=== PATIENT | female | born 1925 | race Caucasian/White ===

== ENCOUNTER → 2016-07-15 | Outpatient (CLI) | payer MEDICARE, OTHER ==
[~2016-07-15] MED LIST: 'CYTOTEC200 MCG PO; COZAAR100 MG PO; TIKOSYN0.25 MG PO; TOPROL XL25 MG PO; VITAMIN D5000 UNIT PO; XARE20MG PO; ZOCOR40 MG PO
== END | disposition home or self-care (01) ==
LOC: RAD 11:45
DX: M19.041 Primary osteoarthritis, right hand (principal); I48.91 Unspecified atrial fibrillation

== ENCOUNTER 2016-09-03 05:39 | Emergency (ER) | payer MEDICARE, OTHER ==
[~2016-09-03] VITALS: Ht 162.5 cm; Wt 62.6 kg
[2016-09-03 06:00] LABS: BASO # 0.1 10*3/uL (0.0-0.1); BASO % 0.6 % (0.0-1.0); EOS # 0.1 10*3/uL (0.0-0.4); EOS % 1.8 % (1.0-4.0); HEMATOCRIT 46.6 % (37.0-47.0); HEMOGLOBIN 15.6 g/dl (12.0-16.0); LYMPH # 1.4 10*3/uL (1.3-4.4); LYMPH % 18.4 % (27.0-41.0); MEAN CORPUSCULAR HGB 31.5 pg (27.0-31.0); MEAN CORPUSCULAR HGB CONC 33.5 g/dl (33.0-37.0); MEAN PLATELET VOLUME 10.4 fl (9.6-12.3); MONO # 0.5 10*3/uL (0.1-1.0); MONO % 6.5 % (3.0-9.0); NEUT # 5.7 10*3/uL (2.3-7.9); NEUT % 72.2 % (47.0-73.0); PLATELET COUNT AUTOMATED 139 10*3/uL (130-400); RED BLOOD COUNT 4.96 10*6/uL (4.10-5.10); RED CELL DISTRI WIDTH 13.6 % (0-14.5); WHITE BLOOD COUNT 7.8 10*3/uL (4.8-10.8)
[2016-09-03] MEDS ORDERED: ASPIRIN ADULT L81 M1 PO (06:11)
[2016-09-03] MEDS ORDERED: PRESERVISION A1 EACH PO (06:13)
[2016-09-03 06:16] LABS: ALBUMIN 3.6 gm/dl (3.1-4.5); ALKALINE PHOSPHATASE 68 U/L (45-117); BILIRUBIN, TOTAL 0.7 mg/dl (0.2-1.0); BUN 15 mg/dl (7-24); CARBON DIOXIDE 28 mmol/L (21-32); CHLORIDE 105 mmol/L (98-107); EST GLOM FILT AFRICAN AMERICAN > 60 ml/min; GLUCOSE 93 mg/dL (65-99); MAGNESIUM 1.8 mg/dL (1.5-2.1); POTASSIUM 4.2 mmol/L (3.5-5.1); SGOT/AST 27 IU/L (3-35); SGPT/ALT 22 U/L (12-78); SODIUM 142 mmol/L (136-145); TOTAL PROTEIN 7.2 gm/dL (6.4-8.2)
[2016-09-03 06:17] LABS: TROPONIN I < 0.015 ng/ml (<0.045)
[2016-09-03 06:21] LABS: INTERNATIONAL NORM RATIO 1.1 (2.0-3.5); PROTHROMBIN TIME 11.7 SECONDS (9.0-12.4)
[2016-09-03] MEDS ORDERED: ZITHROMAX250 MG PO (07:17)
== END 2016-09-03 07:29 | disposition home or self-care (01) ==
LOC: ED 05:39
PROVIDERS: Emergency Medicine Emergency Medical Services
DX: J18.1 Lobar pneumonia, unspecified organism (principal); R07.9 Chest pain, unspecified; I48.91 Unspecified atrial fibrillation; Z79.82 Long term (current) use of aspirin; Z79.899 Other long term (current) drug therapy

== ENCOUNTER → 2016-09-23 | Outpatient (CLI) | payer MEDICARE, OTHER ==
[~2016-09-23] MED LIST changes: +ASPIRIN ADULT L81 M1 PO; +PRESERVISION A1 EACH PO; +ZITHROMAX250 MG PO
== END | disposition home or self-care (01) ==
LOC: RAD 09:16
DX: J44.9 Chronic obstructive pulmonary disease, unspecified (principal); J18.1 Lobar pneumonia, unspecified organism; I70.0 Atherosclerosis of aorta

== ENCOUNTER → 2017-02-01 | Outpatient (CLI) | payer MEDICARE, OTHER ==
[2017-02-01 10:46] LABS: ALBUMIN 3.4 gm/dl (3.1-4.5); ALKALINE PHOSPHATASE 71 U/L (45-117); BUN 18 mg/dl (7-24); CHLORIDE 106 mmol/L (98-107); CREATININE 0.89 mg/dL (0.55-1.02); POTASSIUM 4.6 mmol/L (3.5-5.1); SGOT/AST 23 IU/L (3-35); SGPT/ALT 20 U/L (12-78); SODIUM 142 mmol/L (136-145); TOTAL PROTEIN 6.9 gm/dL (6.4-8.2)
[2017-02-01 10:48] LABS: BASO % 0.5 % (0.0-1.0); EOS # 0.1 10*3/uL (0.0-0.4); EOS % 1.2 % (1.0-4.0); HEMATOCRIT 43.9 % (37.0-47.0); HEMOGLOBIN 14.2 g/dl (12.0-16.0); LYMPH # 1.3 10*3/uL (1.3-4.4); LYMPH % 15.4 % (27.0-41.0); MEAN CELL VOLUME 96.5 fl (81.0-99.0); MEAN CORPUSCULAR HGB 31.2 pg (27.0-31.0); MEAN CORPUSCULAR HGB CONC 32.3 g/dl (33.0-37.0); MEAN PLATELET VOLUME 10.9 fl (9.6-12.3); MONO # 0.6 10*3/uL (0.1-1.0); MONO % 7.2 % (3.0-9.0); NEUT # 6.5 10*3/uL (2.3-7.9); NEUT % 75.4 % (47.0-73.0); PLATELET COUNT AUTOMATED 163 10*3/uL (130-400); RED BLOOD COUNT 4.55 10*6/uL (4.10-5.10); RED CELL DISTRI WIDTH 13.8 % (0-14.5); WHITE BLOOD COUNT 8.6 10*3/uL (4.8-10.8)
== END | disposition home or self-care (01) ==
LOC: LAB 08:51 → CT 09:00
PROVIDERS: Family Medicine
DX: K57.30 Diverticulosis of large intestine without perforation or abscess without bleeding (principal); I70.0 Atherosclerosis of aorta; E55.9 Vitamin D deficiency, unspecified; Z90.49 Acquired absence of other specified parts of digestive tract; Z90.710 Acquired absence of both cervix and uterus

== ENCOUNTER → 2017-03-26 | Outpatient (CLI) | payer MEDICARE, OTHER ==
[~2017-03-26] MED LIST changes: +LASIX20 MG PO; +METOPROLOL SUCC25 M2 PO; +PANTOPRAZOLE SO40 MG PO; +VITAMIN D-32000 UNIT PO
== END | disposition home or self-care (01) ==
LOC: RAD 10:31
DX: N93.9 Abnormal uterine and vaginal bleeding, unspecified (principal); R10.9 Unspecified abdominal pain; R31.0 Gross hematuria

== ENCOUNTER 2017-04-06 11:14 | Inpatient (IN) | payer MEDICARE, OTHER ==
[~2017-04-06] VITALS: Ht 162.5 cm; Wt 63.6 kg
--- NOTE | ~2017-04-06 | CON ---
[place], [place] REPORT OF CONSULTATION NAME: LULY CA [facility] #: [id number] UNIT #: [id number] ROOM: 408 DOCTOR: TONE KEVIN MD BIRTHDATE: [birth year] DOS: 04/07/2017 The patient was seen at her bedside today, 04/07/2017, for Cardiology consultation. CHIEF COMPLAINT: Dyspnea and cough. HISTORY OF PRESENT ILLNESS: The patient is an 89-year-old woman who states that she has had atrial fibrillation for about 10 years. She states that her first episode occurred while she was working in a [employer]. She had a syncopal episode and was brought to the hospital where she was found to have atrial fibrillation with rapid ventricular response. She was treated with rate slowing medications and anticoagulation. She states that she has never had a heart attack, although she was told that during her syncopal episode,, she had a mini stroke. She has recovered from this. The patient notes that recently she has had episodic hematuria. She was diagnosed as having recurrent urinary tract infections. She has had hospitalizations for rapid heartbeat, but never at [facility] before. Typically, she is followed by Dr. Kayode Barrett in [place]. On this occasion, she states that she has become more short of breath and has had a cough. In the Emergency Room, she was found to have atrial fibrillation with a rapid ventricular response. Her chest x-ray showed a small left pleural effusion and cardiomegaly with fibrosis. A CT of the chest showed small right and moderate left pleural effusions with bilateral lower lobe atelectasis and emphysema as well as pulmonary fibrosis. We were asked to see the patient for her rapid response to atrial fibrillation. Upon questioning and review of the records, I note that her only medication for rate control is metoprolol 25 mg daily. The patient believes that that medication has actually been stopped. Family members including 3 sons and a [id number] believe that the medicine was stopped earlier this year, but do not have her current medical list with them. PAST MEDICAL HISTORY: Includes: 1. Atrial fibrillation with rapid ventricular response, first documented about 2006. 2. History of transient ischemic attack. 3. Hyperlipidemia. 4. Recurrent hematuria and urinary tract infections. PAST SURGICAL HISTORY: Status post appendectomy, cholecystectomy, D and C, cataract resection and right total knee replacement. MEDICATIONS PRIOR TO ADMISSION: Aspirin 81 mg per day, rivaroxaban 15 mg per day, simvastatin 40 mg at bedtime, PreserVision daily and it is not clear whether or not the patient is taking metoprolol succinate 25 mg daily. ALLERGIES: She has no known drug allergies. [place], [place] REPORT OF CONSULTATION NAME: LULY CA UNIT #: [id number] ROOM: 408 DOCTOR: TONE KEVIN MD BIRTHDATE: [birth year] FAMILY HISTORY: The patient's father at age 83 of natural causes. Her mother of CHF at age 78. REVIEW OF SYSTEMS: The patient denies diplopia or loss of vision. She is generally weak and breathless, but denies focal weakness. She denies lightheadedness or syncope. She denies orthopnea or PND. She denies fevers, chills, sweats or recent weight change. She denies hemoptysis or hematemesis. She denies blood in her urine or stools. She has had some peripheral edema. She denies any skin rashes. The remainder of the review of systems is negative except as noted above. SOCIAL HISTORY: The patient does not smoke or consume alcohol. PHYSICAL EXAMINATION: GENERAL: The patient is a slender, elderly white female who is awake, alert and oriented. VITAL SIGNS: Pulse is 100 and irregularly irregular, blood pressure is 120/82. She is afebrile. HEENT: Normocephalic and atraumatic. Extraocular muscles are intact. Sclerae are clear. Pupils are equal, round and react to light. The oral mucosa is moist. Tongue is midline. NECK: Supple. She has mild jugular distention with hepatojugular reflux. Carotids are full. I heard no bruits. She had no neck or supraclavicular masses and no thyromegaly. LUNGS: Respirations are unlabored. Her chest has decreased breath sounds at the bases with crackles and dullness at the bases. She has no presacral edema or chest wall tenderness. CARDIOVASCULAR: Her heart has an irregularly irregular rhythm without murmurs or gallops. The PMI is not displaced. There is no precordial heave, lift or thrill. ABDOMEN: Soft and normally active without masses, organomegaly or bruits. EXTREMITIES: Showed 1+ edema bilaterally. Peripheral pulses are palpable in the feet. LABORATORY DATA: Review of her electrocardiogram shows atrial fibrillation with a rapid ventricular response. There are no acute changes. IMPRESSION: 1. Atrial fibrillation with rapid ventricular response. 2. Acute on chronic diastolic congestive heart failure, likely due to atrial fibrillation with rapid ventricular response. 3. History of transient ischemic attack. 4. CHADS-VASc score equals 6, consistent with a high risk for future cardioembolic phenomena if the patient is not anticoagulated. PLAN: It is not clear at this point whether or not the patient was on a beta rojelio prior to admission. If she was, the dose was small and if she was not, she was not on any rate lowering medications. I think that she certainly should be on something to control her rate response to atrial fibrillation. At this [place], [place] REPORT OF CONSULTATION NAME: LULY CA UNIT #: [id number] ROOM: 408 DOCTOR: TONE KEVIN MD BIRTHDATE: [birth year] point, I would like to try her on metoprolol 25 mg b.i.d. 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 She did have an echocardiogram earlier today, but the images are not yet available for review. I will make further recommendations once I have seen them. She certainly should remain on long-term anticoagulation since her risk of stroke is quite high without it. I would not, however, keep her on aspirin and a direct oral anticoagulant since the combination may increase the potential for bleeding unnecessarily. I thank the hospitalist physicians for asking our advice regarding her care. TONE KEVIN MD CM:CONSTR:REPORT OF CONSULTATION [id number] 04/07/17 2004 interface
--- NOTE | ~2017-04-06 | PR ---
[place], [place] PROGRESS NOTE NAME: LULY CA [facility] #: [id number] UNIT #: [id number] ROOM: 408 DOCTOR: TONE KEVIN MD BIRTHDATE: [birth year] DOS: 04/08/2017 SUBJECTIVE: The patient was seen at her bedside today; 04/08/2017; for followup of her atrial fibrillation and acute on chronic diastolic congestive heart failure. She has had atrial fibrillation for 10 years. Recently, her metoprolol was stopped. Neither she, nor her family can tell me why that would be, but she came into the hospital with atrial fibrillation, a rapid ventricular response and heart failure. We resumed metoprolol at a dose of 25 mg twice a day. Her heart rate is now in the 80 to 100 range and she feels much better. PHYSICAL EXAMINATION: VITAL SIGNS: Today her pulse is 74 and irregularly irregular, blood pressure is 130/78. She is afebrile. She weighs 63.6 kilograms with a body mass index of 24.1. NECK: Supple. There is no jugular distention. Carotids are full without bruits. LUNGS: Respirations are unlabored. Her chest is clear to auscultation and percussion. She has no presacral edema. HEART: Has an irregularly irregular rhythm without murmurs or gallops. ABDOMEN: Benign. EXTREMITIES: Show varicose veins, but no edema. LABORATORY DATA: An echocardiogram was done on April 07, which showed normal left ventricular size, wall motion and systolic function with ejection fraction of about 70%. Diastole could not be assessed. The right ventricle appeared moderately dilated with mild impairment in right ventricular systolic function. The left atrium was severely dilated, as was the right atrium. There was moderate tricuspid insufficiency with mild pulmonary hypertension. IMPRESSION: 1. Permanent atrial fibrillation. 2. Acute on chronic diastolic congestive heart failure due to atrial fibrillation with rapid ventricular response. 3. History of transient ischemic attack. 4. CHADS-VASc score of 6, consistent with a high risk for future cardioembolic phenomena, unless the patient is anticoagulated. PLAN: I would recommend that the patient be maintained on beta rojelio therapy for rate control. She should also be on lifelong anticoagulation therapy. No other workup is planned in the hospital and I think that she can be discharged from our perspective. She typically follows with Dr. Barrett in [place]. We will remain available to see her if needed. I thank the hospitalist physicians for asking our advice regarding her care. [place], [place] PROGRESS NOTE NAME: LULY CA UNIT #: [id number] ROOM: [facility] DOCTOR: TONE KEVIN MD BIRTHDATE: [birth year] TONE KEVIN MD CM:PNTRANS [id number] TONE KEVIN MD 04/08/17 1127 interface
[~2017-04-06 11:14] MED LIST changes: -LASIX20 MG PO; -METOPROLOL SUCC25 M2 PO; -PANTOPRAZOLE SO40 MG PO; -VITAMIN D-32000 UNIT PO
[2017-04-06 11:51] VITALS: BP 123/85
[2017-04-06 12:40] LABS: BASO % 0.2 % (0.0-1.0); EOS # 0.3 10*3/uL (0.0-0.4); EOS % 2.2 % (1.0-4.0); HEMATOCRIT 40.2 % (37.0-47.0); HEMOGLOBIN 13.2 g/dl (12.0-16.0); LYMPH # 0.8 10*3/uL (1.3-4.4); LYMPH % 6.6 % (27.0-41.0); MEAN CELL VOLUME 94.1 fl (81.0-99.0); MEAN CORPUSCULAR HGB 30.9 pg (27.0-31.0); MEAN CORPUSCULAR HGB CONC 32.8 g/dl (33.0-37.0); NEUT # 10.3 10*3/uL (2.3-7.9); NEUT % 82.7 % (47.0-73.0); PLATELET COUNT AUTOMATED 197 10*3/uL (130-400); RED BLOOD COUNT 4.27 10*6/uL (4.10-5.10); RED CELL DISTRI WIDTH 13.2 % (0-14.5); WHITE BLOOD COUNT 12.5 10*3/uL (4.8-10.8)
[2017-04-06 12:49] LABS: ACT PARTIAL THROMBO TIME 25.9 SECONDS (20.8-31.5); INTERNATIONAL NORM RATIO 1.1 (2.0-3.5)
[2017-04-06 12:56] LABS: ALKALINE PHOSPHATASE 64 U/L (45-117); BUN 12 mg/dl (7-24); CHLORIDE 101 mmol/L (98-107); CREATININE 0.75 mg/dL (0.55-1.02); POTASSIUM 4.7 mmol/L (3.5-5.1); SGOT/AST 15 IU/L (3-35); SGPT/ALT 14 U/L (12-78); SODIUM 137 mmol/L (136-145); TOTAL PROTEIN 6.7 gm/dL (6.4-8.2)
[2017-04-06 13:00] VITALS: BP 142/89
[2017-04-06 13:00] LABS: TROPONIN I < 0.015 ng/ml (<0.045)
[2017-04-06 14:30] VITALS: BP 145/872
[2017-04-06 15:04] VITALS: BP 143/89
[2017-04-06 15:30] VITALS: BP 150/70
[2017-04-06 17:05] LABS: BILIRUBIN NEGATIVE (NEGATIVE); BLOOD NEGATIVE (NEGATIVE); CLARITY SL CLOUDY (CLEAR); COLOR YELLOW (YELLOW); GLUCOSE NEGATIVE (NEGATIVE); KETONE NEGATIVE (NEGATIVE); LEUKO ESTERASE TRACE (NEGATIVE); NITRITE NEGATIVE (NEGATIVE)
[2017-04-06 17:16] LABS: BACTERIA TRACE
[2017-04-06 20:00] VITALS: BP 150/70
[2017-04-07] VITALS: BP 115/54
[2017-04-07 06:25] LABS: BASO % 0.4 % (0.0-1.0); EOS # 0.3 10*3/uL (0.0-0.4); EOS % 3.7 % (1.0-4.0); HEMATOCRIT 39.6 % (37.0-47.0); LYMPH # 0.9 10*3/uL (1.3-4.4); LYMPH % 10.6 % (27.0-41.0); MEAN CELL VOLUME 93.6 fl (81.0-99.0); MEAN CORPUSCULAR HGB 30.7 pg (27.0-31.0); MEAN CORPUSCULAR HGB CONC 32.8 g/dl (33.0-37.0); MEAN PLATELET VOLUME 10.3 fl (9.6-12.3); MONO # 0.6 10*3/uL (0.1-1.0); MONO % 7.6 % (3.0-9.0); NEUT # 6.4 10*3/uL (2.3-7.9); PLATELET COUNT AUTOMATED 189 10*3/uL (130-400); RED BLOOD COUNT 4.23 10*6/uL (4.10-5.10); RED CELL DISTRI WIDTH 13.1 % (0-14.5); WHITE BLOOD COUNT 8.3 10*3/uL (4.8-10.8)
[2017-04-07 06:36] LABS: ALBUMIN 2.7 gm/dl (3.1-4.5); CHLORIDE 101 mmol/L (98-107); SODIUM 138 mmol/L (136-145)
[2017-04-07 06:46] LABS: ALKALINE PHOSPHATASE 62 U/L (45-117); BUN 15 mg/dl (7-24); CHOLESTEROL 122 mg/dL (<200); CREATININE 0.87 mg/dL (0.55-1.02); FREE T4 1.17 ng/dl (0.76-1.46); HDL CHOLESTEROL 55 mg/dl (40-60); LDL CHOLESTEROL 57 mg/dL (9-159); PHOSPHOROUS 3.7 mg/dL (2.5-4.9); SGOT/AST 13 IU/L (3-35); SGPT/ALT 13 U/L (12-78); TOTAL PROTEIN 6.3 gm/dL (6.4-8.2); TRIGLYCERIDES 52 mg/dl (<150); VLDL CHOLESTEROL 10 mg/dL (6-40)
[2017-04-07 07:43] LABS: VITAMIN D, 25-HYDROXY 22.1 ng/mL (30-100)
[2017-04-07 08:00] VITALS: BP 132/70
[2017-04-07 12:00] VITALS: BP 120/82
[2017-04-07 16:00] VITALS: BP 119/67
[2017-04-07 20:00] VITALS: BP 124/69
[2017-04-08] VITALS: BP 137/77
[2017-04-08 08:00] VITALS: BP 130/78
[2017-04-08] MEDS ORDERED: METOPROLOL SUCC25 M2 PO (10:41)
[2017-04-08] MEDS ORDERED: PANTOPRAZOLE SO40 MG PO (10:41)
[2017-04-08] MEDS ORDERED: LASIX20 MG PO (10:41)
[2017-04-08] MEDS ORDERED: VITAMIN D-32000 UNIT PO (10:41)
[2017-04-08 12:00] VITALS: BP 96/69
== END 2017-04-08 14:16 | disposition home or self-care (01) | DRG 308 ==
LOC: ED 11:14 → 4E 14:29 → EDHOLD 14:29 → 4E 14:38
PROVIDERS: Emergency Medicine; Registered Nurse
DX: I48.91 Unspecified atrial fibrillation (principal); I50.33 Acute on chronic diastolic (congestive) heart failure; E44.0 Moderate protein-calorie malnutrition; R65.10 Systemic inflammatory response syndrome (SIRS) of non-infectious origin without acute organ dysfunction; I27.20 Pulmonary hypertension, unspecified; R31.9 Hematuria, unspecified; E83.41 Hypermagnesemia; D72.829 Elevated white blood cell count, unspecified; E78.00 Pure hypercholesterolemia, unspecified; Z66 Do not resuscitate; Z51.5 Encounter for palliative care; Z90.710 Acquired absence of both cervix and uterus; Z86.73 Personal history of transient ischemic attack (TIA), and cerebral infarction without residual deficits; Z82.49 Family history of ischemic heart disease and other diseases of the circulatory system; Z68.24 Body mass index [BMI] 24.0-24.9, adult; Z90.49 Acquired absence of other specified parts of digestive tract; Z79.82 Long term (current) use of aspirin; Z79.899 Other long term (current) drug therapy; Z68.23 Body mass index [BMI] 23.0-23.9, adult